=== PATIENT | male | born 1980 | race Hispanic/Latino ===

== ENCOUNTER 2022-11-26 19:25 | Emergency (ER) | payer OTHER ==
[~2022-11-26] VITALS: Ht 170.2 cm; Wt 94.8 kg
[2022-11-26] MEDS ORDERED: CEFTRIAXONE 1G VIAL IVP ONE (20:00)
[2022-11-26] MEDS ORDERED: 0.9%NACL 1000ML 1,000 ML IV ONE (20:00)
[2022-11-26] MEDS ORDERED: KETOROLAC 15MG/ML VIAL (15MG/ML) IV ONE (20:00)
[2022-11-26 20:04] LABS: BASOPHILS % (AUTO) 0.5 % (0.0-5.0); EOSINOPHILS % (AUTO) 1.3 % (0.0-8.0); HEMATOCRIT 44.6 % (42-54); LYMPHOCYTES % (AUTO) 14.5 % (21.0-51.0); MEAN CORPUSCULAR HGB CONC 33.6 g/dL (32.0-36.0); MEAN CORPUSCULAR VOLUME 92.1 fL (79-99); MONOCYTES % (AUTO) 7.5 % (3.0-13.0); NEUTROPHILS % (AUTO) 75.8 % (40.0-77.0); PLATELET COUNT (AUTO) 374 K/uL (130-400); RED BLOOD CELL COUNT(AUTO) 4.84 MIL/uL (4.50-6.20); WHITE BLOOD COUNT (AUTO) 14.9 K/uL (4.8-10.8)
[2022-11-26 20:15] LABS: CREATININE 1.4 mg/dL (0.5-1.5); POTASSIUM 3.9 mmol/L (3.5-5.1)
[2022-11-26 20:20] LABS: ALBUMIN 4.3 g/dL (3.5-5.0); TOTAL PROTEIN, SERUM 8.9 g/dL (6.0-8.3)
[2022-11-26] MEDS ORDERED: LIDOCAINE HCL 1% 20 ML VIAL INJ SCH (20:30)
[2022-11-26] MEDS ORDERED: CLIN-141 PO (20:59)
[2022-11-26 21:11] VITALS: BP 127/69
== END 2022-11-26 21:20 | disposition home or self-care (01) ==
LOC: EDH 19:25
DX: L02.413 Cutaneous abscess of right upper limb (principal)
CPT/HCPCS: 99284; 96374; 10060; 96361; 96375; 80053; 85025; 87040 ×2; 83605; 36415; 73080; J7030; J0696; J1885